=== PATIENT | male | born 1960 | race Caucasian/White ===

== ENCOUNTER 2025-10-19 09:07 | Inpatient (IN) | payer MEDICARE, MEDICAID ==
[~2025-10-19] VITALS: Ht 152.4 cm; Wt 80.3 kg
[2025-10-19 09:12] VITALS: O2SAT 97
[2025-10-19] MEDS: ONDANSETRON HCL 4MG/2ML INJ IV ONE ×2 (09:35→10:55)
[2025-10-19] MEDS: SODIUM CHLORIDE 0.9% 1,000 ML IV ONE ×3 (09:35→13:00)
[2025-10-19 09:57] LABS: BASOPHILS % 0.5 % (0.0-2.0); EOSINOPHILS % 2.5 % (0.0-5.0); HEMATOCRIT. 44.8 % (42.0-52.0); HEMOGLOBIN. 14.8 g/dL (14.0-18.0); LYMPHOCYTES % 38.4 % (20.0-50.0); MEAN PLATELET VOLUME 9.9 fl (7.4-10.4); MONOCYTES % 7.0 % (2.0-8.0); NEUTROPHILS % 51.6 % (40.0-76.0); PLATELET 178 x1000/uL (130-400); RED BLOOD CELL COUNT 4.85 mill/uL (4.7-6.1); RED CELL DISTRIBUTION WIDTH 13.7 % (11.6-14.6)
[2025-10-19 10:13] LABS: CREATININE 1.0 mg/dL (0.6-1.3); PROTEIN TOTAL 7.6 g/dL (6.0-8.3); UREA NITROGEN BLOOD 19 mg/dL (9-23)
[2025-10-19 10:14] LABS: ASPARTATE AMINOTRANSFERASE 25 IU/L (<34)
[2025-10-19 10:15] LABS: BILIRUBIN DIRECT 0.2 mg/dL (<=3.0); BILIRUBIN TOTAL 0.8 mg/dL (0.1-1.0)
[2025-10-19] MEDS ORDERED: MAGNESIUM/ALUMINUM HYDROXIDE/SIMETHICONE 30ML UDC PO PRN (12:30)
[2025-10-19] MEDS ORDERED: GUAIFENESIN 200MG/10ML SUGAR FREE UDC PO PRN (12:30)
[2025-10-19] MEDS ORDERED: DOCUSATE SODIUM 100MG CAPSULE PO PRN (12:30)
[2025-10-19] MEDS ORDERED: ACETAMINOPHEN 325MG TABLET PO PRN (12:30)
[2025-10-19] MEDS ORDERED: IPRATROPIUM/ALBUTEROL 0.5-3(2.5)MG/3ML NEB HHN PRN (12:30)
[2025-10-19] MEDS ORDERED: DEXTROSE 50% WATER 50ML SYRINGE IV PRN (12:45)
[2025-10-19] MEDS ORDERED: LOTEN PO SCH (12:45)
[2025-10-19] MEDS: BLOOD SUGAR DIAGNOSTIC STRIP TEST SCH (13:00)
[2025-10-19] MEDS ORDERED: HYDROCHLOROTHIAZIDE 25MG TABLET PO SCH (13:00)
[2025-10-19] MEDS: INSULIN LISPRO 100 UNITS/ML SUBCUT SCH (13:02)
[2025-10-19 13:13] LABS: CLARITY URINE CLEAR (CLEAR); COLOR URINE YELLOW (YELLOW); GLUCOSE URINE 3+ (NEGATIVE); KETONES URINE 1+ (NEGATIVE); LEUKOCYTE ESTERASE URINE NEGATIVE (NEGATIVE); NITRITE URINE NEGATIVE (NEGATIVE); OCCULT BLOOD URINE TRACE (NEGATIVE); PH URINE 5.0 (4.5-8.0); PROTEIN URINE 2+ (NEGATIVE); SPECIFIC GRAVITY URINE 1.026 (1.005-1.030); UROBILINOGEN URINE 0.2 E.U./dL (0.2-1.0)
[2025-10-19 13:42] LABS: BACTERIA URINE RARE; RBC URINE 0-2 /hpf (0-2); SQUAMOUS EPITHELIAL CELL URINE FEW /lpf (RARE/1+); WBC URINE 0-2 /hpf (0-2); YEAST URINE NONE SEEN
[2025-10-19 13:53] LABS: *AMPHETAMINES SCREEN URINE NEGATIVE (NEGATIVE); *BARBITURATES SCREEN URINE NEGATIVE (NEGATIVE); *BENZODIAZEPINES SCREEN URINE NEGATIVE (NEGATIVE); *COCAINE SCREEN URINE NEGATIVE (NEGATIVE); CANNABINOID URINE SCREEN NEGATIVE (NEGATIVE); ECSTASY MDMA SCREEN URINE NEGATIVE (NEGATIVE); METHADONE URINE SCREEN NEGATIVE (NEGATIVE); OPIATES URINE SCREEN NEGATIVE (NEGATIVE); PHENCYCLIDINE URINE SCREEN NEGATIVE (NEGATIVE)
[2025-10-19] MEDS: PANTOPRAZOLE SODIUM 40 MG/VIAL IV SCH (14:20)
[2025-10-19] MEDS: LISINOPRIL 10MG TABLET PO SCH (14:21)
[2025-10-19] MEDS: HYDROCHLOROTHIAZIDE 12.5MG CAPSULE PO SCH (14:22)
[2025-10-19] MEDS: ACETAMINOPHEN 325MG TABLET PO PRN (14:23)
[2025-10-19 17:46] VITALS: BP 178/80; PULSE 102; RESP 15; TEMP 36.6404
[2025-10-19 20:00] VITALS: BP 178/92; PULSE 81; RESP 18; TEMP 36.7; O2SAT 98
[2025-10-19] MEDS: CLONIDINE 0.1MG TABLET PO PRN (20:47)
[2025-10-19] MEDS ORDERED: INSULIN GLARGINE 100 UNITS/ML SUBCUT SCH (22:00)
[2025-10-20] VITALS: BP 125/77; PULSE 84; RESP 18; TEMP 36.6; O2SAT 98
[2025-10-20 04:00] VITALS: BP 150/83; PULSE 70; RESP 18; TEMP 36.4; O2SAT 97
[2025-10-20] MEDS: ONDANSETRON HCL 4MG/2ML INJ IV PRN (06:03)
[2025-10-20 08:00] VITALS: BP 156/76; PULSE 73; RESP 20; TEMP 36.5; O2SAT 97
[2025-10-20] MEDS: SODIUM CHLORIDE 0.9% 1,000 ML IV SCH (10:15)
[2025-10-20 11:13] LABS: BASOPHILS % 0.2 % (0.0-2.0); EOSINOPHILS % 0.2 % (0.0-5.0); HEMATOCRIT. 43.1 % (42.0-52.0); HEMOGLOBIN. 14.4 g/dL (14.0-18.0); LYMPHOCYTES % 25.7 % (20.0-50.0); MEAN PLATELET VOLUME 10.4 fl (7.4-10.4); MONOCYTES % 7.8 % (2.0-8.0); NEUTROPHILS % 66.1 % (40.0-76.0); PLATELET 172 x1000/uL (130-400); RED BLOOD CELL COUNT 4.67 mill/uL (4.7-6.1); RED CELL DISTRIBUTION WIDTH 14.0 % (11.6-14.6)
[2025-10-20 11:32] LABS: T4 FREE 1.25 ng/dL (0.89-1.76)
[2025-10-20 11:33] LABS: CREATININE 0.8 mg/dL (0.6-1.3); TRIGLYCERIDE 187 mg/dL (0-150); UREA NITROGEN BLOOD 19 mg/dL (9-23)
[2025-10-20 11:34] LABS: LDL CHOLESTEROL 115 mg/dL (5-100)
[2025-10-20 16:00] VITALS: BP 164/79; PULSE 68; RESP 19; TEMP 36.4; O2SAT 96
[2025-10-20] MEDS ORDERED: DEXTROSE 50% WATER 50ML SYRINGE IV PRN (16:15)
[2025-10-20] MEDS ORDERED: BLOOD SUGAR DIAGNOSTIC STRIP TEST SCH (16:40)
[2025-10-20] MEDS: AMLODIPINE 5MG TABLET PO SCH (17:17)
[2025-10-20] MEDS ORDERED: PATIENT'S OWN MEDICATION PO SCH (19:00)
[2025-10-20 20:00] VITALS: BP 155/78; PULSE 67; RESP 67; TEMP 36.6; O2SAT 97
[2025-10-20] MEDS: INSULIN GLARGINE 100 UNITS/ML SUBCUT SCH (22:12)
[2025-10-21 04:00] VITALS: BP 179/86; PULSE 67; RESP 19; TEMP 35.6; O2SAT 98
[2025-10-21 06:37] LABS: BASOPHILS % 0.6 % (0.0-2.0); EOSINOPHILS % 1.4 % (0.0-5.0); HEMATOCRIT. 44.7 % (42.0-52.0); HEMOGLOBIN. 14.5 g/dL (14.0-18.0); LYMPHOCYTES % 37.3 % (20.0-50.0); MEAN PLATELET VOLUME 9.7 fl (7.4-10.4); MONOCYTES % 10.5 % (2.0-8.0); NEUTROPHILS % 50.2 % (40.0-76.0); PLATELET 167 x1000/uL (130-400); RED BLOOD CELL COUNT 4.80 mill/uL (4.7-6.1); RED CELL DISTRIBUTION WIDTH 13.9 % (11.6-14.6)
[2025-10-21 06:43] LABS: CREATININE 1.0 mg/dL (0.6-1.3)
[2025-10-21 06:44] LABS: UREA NITROGEN BLOOD 16 mg/dL (9-23)
[2025-10-21 06:46] LABS: PHOSPHORUS 2.8 mg/dL (2.5-4.9)
[2025-10-21 07:21] LABS: HEPATITIS A AB IGM NEGATIVE (Negative)
[2025-10-21 07:22] LABS: HEPATITIS B CORE AB IGM NEGATIVE (Negative); HEPATITIS C AB NON REACTIVE (Neg) (Negative)
[2025-10-21 08:00] VITALS: BP 127/66; PULSE 71; RESP 18; TEMP 36.3; O2SAT 100
[2025-10-21] MEDS: AMLODIPINE 10MG TABLET PO SCH (09:23)
[2025-10-21 15:00] VITALS: BP 152/76; PULSE 60; RESP 18; O2SAT 98
[2025-10-21 15:05] VITALS: BP 160/87; PULSE 64; RESP 18; O2SAT 98
[2025-10-21] MEDS: CLOPIDOGREL 75MG TABLET PO NR (17:53)
[2025-10-21] MEDS: MECLIZINE 25MG TABLET PO PRN (17:54)
[2025-10-21] MEDS: ASPIRIN 325MG EC TABLET PO NR (17:54)
[2025-10-21 20:00] VITALS: BP 132/75; PULSE 61; RESP 18; TEMP 36.9; O2SAT 98
[2025-10-21] MEDS: ATORVASTATIN CALCIUM 40MG TABLET PO SCH (21:43)
[2025-10-21 22:16] LABS: TROPONIN I HIGH SENSITIVITY 7 ng/L (3.0-53)
[2025-10-22] VITALS: BP 151/75; PULSE 65; RESP 20; TEMP 37; O2SAT 99
[2025-10-22 04:00] VITALS: BP_SYST 119; BP_DIAS 56; BP_DIAS 66; PULSE 75; RESP 18; TEMP 36.7; O2SAT 98
[2025-10-22 08:00] VITALS: BP 139/76; PULSE 67; RESP 18; TEMP 36.3; O2SAT 98
[2025-10-22] MEDS: CLOPIDOGREL 75MG TABLET PO SCH (08:43)
[2025-10-22] MEDS: ASPIRIN 81MG EC TABLET PO SCH (08:43)
[2025-10-22] MEDS: BICTEGRAVIR 50MG/EMTRICITABINE 200MG/TENOFOVIR ALA 25MG PO SCH (10:00)
[2025-10-22 12:00] VITALS: BP 134/78; PULSE 72; RESP 18; TEMP 37.1; O2SAT 98
[2025-10-22 16:00] VITALS: BP 129/78; PULSE 76; RESP 18; TEMP 36.6; O2SAT 100
[2025-10-22 20:00] VITALS: BP 151/70; PULSE 70; RESP 18; TEMP 37.1; O2SAT 98
[2025-10-23] VITALS: PULSE 67; RESP 14; TEMP 36.1; O2SAT 98
[2025-10-23 04:00] VITALS: BP 146/81; PULSE 87; RESP 14; TEMP 36.1; O2SAT 98
[2025-10-23 06:13] LABS: HIV SCREEN 4G Preliminary Reactive (Non Reactive)
[2025-10-23 08:00] VITALS: BP_SYST 126; BP_SYST 131; BP_SYST 136; BP_DIAS 75; BP_DIAS 79; BP_DIAS 89; PULSE 79; TEMP 36.6
[2025-10-23 12:00] VITALS: BP 149/76; PULSE 73; TEMP 36.1
[2025-10-23] MEDS ORDERED: ASPI-1406 PO (12:04)
[2025-10-23] MEDS ORDERED: LIP40 PO (12:04)
[2025-10-23] MEDS ORDERED: BICT1TAB PO (12:04)
[2025-10-23] MEDS ORDERED: CLOP-31 PO (12:04)
[2025-10-23 16:00] VITALS: BP 139/69; PULSE 66; TEMP 36.8
[2025-10-23 20:00] VITALS: BP 160/80; PULSE 77; RESP 19; TEMP 36.6; O2SAT 96
[2025-10-23] MEDS: INSULIN GLARGINE 100 UNITS/ML SUBCUT SCH (21:40)
[2025-10-24 08:11] LABS: HIV 1 ABS Reactive (Non Reactive); HIV 2 ABS Non Reactive (Non Reactive)
== END 2025-10-23 22:22 | DRG 391 ==
LOC: ER 09:07 → 7EST 11:45 → EDBEDREQ 11:49 → EDBEDREQTM 11:49 → 7WST 10-21 19:43
PROVIDERS: ADMIT Internal Medicine; ATTEND Internal Medicine
DX: A08.4 Viral intestinal infection, unspecified (principal); I63.541 Cerebral infarction due to unspecified occlusion or stenosis of right cerebellar artery; G81.91 Hemiplegia, unspecified affecting right dominant side; E11.65 Type 2 diabetes mellitus with hyperglycemia; E78.00 Pure hypercholesterolemia, unspecified; D72.829 Elevated white blood cell count, unspecified; Z79.02 Long term (current) use of antithrombotics/antiplatelets; I10 Essential (primary) hypertension; K21.9 Gastro-esophageal reflux disease without esophagitis; Z79.899 Other long term (current) drug therapy; Z79.4 Long term (current) use of insulin; Z79.82 Long term (current) use of aspirin; Z86.73 Personal history of transient ischemic attack (TIA), and cerebral infarction without residual deficits; Z87.891 Personal history of nicotine dependence; Z88.0 Allergy status to penicillin
CPT/HCPCS: 36415; 76705; 80048; 80061; 80076; 80305; 81003; 82962; 83036; 83735; 84100; 84439; 84443; 84484; 85025; 86701; 86702; 86705; 86709; 87340; 87389; 93005; 93970; 96374; 96375; 97116; 97162; 97166; 97530; 97535; 99285; J1815; J2405; J2470; J7030; J8597